=== PATIENT | male | born 1965 | race Two or more races ===

== ENCOUNTER 2022-02-02 08:46 | Inpatient (IN) | payer OTHER ==
[~2022-02-02] VITALS: Ht 185.4 cm; Wt 97.5 kg
[~2022-02-02 08:46] MED LIST: AMBIEN10 MG PO; CLONAZEPAM2 MG PO; LIPITOR20 MG PO; SEROQUEL XR150 MG PO
[2022-02-06] MEDS ORDERED: TAMSULOSIN HCL0.4 MG (11:27)
[2022-02-06] MEDS ORDERED: DULOXETINE HCL60 MG (11:27)
[2022-02-06] MEDS ORDERED: QUETIAPINE FUM100 MG (11:27)
[2022-02-06] MEDS ORDERED: OMEPRAZOLE40 MG (11:28)
[2022-02-08] MEDS ORDERED: LEVSIN/SL0.125 MG SL (14:58)
[2022-02-08] MEDS ORDERED: INTESTINEX680 M1 PO (14:58)
[2022-02-08] MEDS ORDERED: ULTRAM50 MG PO (14:59)
== END 2022-02-08 15:07 | disposition home or self-care (01) | DRG 331 ==
LOC: SURH 02-05 07:35 → O/R 02-05 08:53 → SURG 02-05 08:53 → EDSEX 02-05 08:53 → SURH 02-05 14:15 → SURG 02-05 22:41
PROVIDERS: ADMIT Surgery; ATTEND Surgery
PROC: 0DBP4ZZ Excision of Rectum, Percutaneous Endoscopic Approach (ICD-10-PCS; 2022-02-05)
PROC: 0DJD8ZZ Inspection of Lower Intestinal Tract, Via Natural or Artificial Opening Endoscopic (ICD-10-PCS; 2022-02-05)
PROC: 4A1BXSH Monitoring of Gastrointestinal Vascular Perfusion using Indocyanine Green Dye, External Approach (ICD-10-PCS; 2022-02-05)
PROC: 0DTN4ZZ Resection of Sigmoid Colon, Percutaneous Endoscopic Approach (ICD-10-PCS; principal; 2022-02-05 14:15)
DX: K57.32 Diverticulitis of large intestine without perforation or abscess without bleeding (principal); N40.0 Benign prostatic hyperplasia without lower urinary tract symptoms; E78.49 Other hyperlipidemia; Z20.822 Contact with and (suspected) exposure to COVID-19